=== PATIENT | male | born 1965 ===

== ENCOUNTER 2018-09-20 08:40 | Outpatient (CLI) | payer OTHER ==
[2018-09-20 10:07] LABS: Hematocrit 49.8 % (35.5-45.6); Hemoglobin 17.1 gm/dl (11.8-15.2); Mean Corpuscular HGB Conc 34 % (32-34); Mean Corpuscular Volume 92 fl (84-94); Platelet Count 238 K/mm3 (140-440); Red Cell Distribution Width 13.7 % (13.2-15.2)
[2018-09-20 10:18] LABS: Albumin 4.5 g/dL (3.9-5); Calcium 9.4 mg/dL (8.4-10.2); Chol/HDL Ratio 3.13 %
[2018-09-25 20:53] LABS: Vitamin D, 25-OH, D2 <4 ng/mL
== END 2018-09-20 08:41 | disposition home or self-care (01) ==
LOC: LAB 08:40
PROVIDERS: ATTEND Internal Medicine
DX: Z00.01 Encounter for general adult medical examination with abnormal findings (principal); Z13.220 Encounter for screening for lipoid disorders; Z13.1 Encounter for screening for diabetes mellitus; Z13.21 Encounter for screening for nutritional disorder
CPT/HCPCS: 36415; 80053; 80061; 82306; 82607; 83036; 84443; 85027